=== PATIENT | female | born 1985 | race Caucasian/White ===

== ENCOUNTER → 2024-06-22 | Outpatient (CLI) | payer BC ==
--- NOTE | 2024-06-22 10:45 | CT ---
EXAMINATION TYPE: CT angio head neck DATE OF EXAM: 06/22/2024 8:13 AM COMPARISON: 02/17/2016. CLINICAL INDICATION: Female, 38 years old with history of H93.A9, G43.909; PHH, MONTES, pulsating Rt ear TECHNIQUE: CT noncontrast head and neck followed by CT angiogram head and neck. Axially acquired helical CT angiogram of the head and neck was obtained with contrast. Axial images are supplemented with 3D reconstructions and MIP images which were post-processed at an independent workstation. NASCET criteria used. Contrast used:65 mL of Isovue 370 without and with IV Contrast, Oral contrast used: None. CT DLP: 1399.3 mGycm, Automated exposure control for dose reduction was used. FINDINGS: CTA HEAD: No evidence of acute intracranial hemorrhage, mass effect, or midline shift. The ventricles, sulci, a nd cisterns are unremarkable. Vertebral arteries: The vertebral arteries are patent. Vertebral artery dominance: Codominant Basilar artery: The basilar artery is intact. The basilar artery bifurcation is normal. Internal Carotid arteries: The cervical, petrous, cavernous and supraclinoid segments are normal. GLADYS: Patent with no evidence of aneurysm. ACOM: Present without evidence of aneurysm. MCA: Patent with no evidence of aneurysm. MATHEMATICS PROFESSOR: Patent with no evidence of aneurysm. PCOM: Hypoplastic bilaterally. Dural sinuses: Patent. CTA NECK: Right Carotid System: The common carotid artery and external carotid artery are patent. The carotid bifurcation demonstrate s no evidence of hemodynamically significant stenosis. The remaining portions of the internal carotid artery demonstrate normal size without significant narrowing. Left Carotid System: The common carotid artery and external carotid artery are patent. The carotid bifurcation demonstrate s no evidence of hemodynamically significant stenosis. The remaining portions of the internal carotid artery demonstrate normal size without significant narrowing. Vertebral arteries are patent without evidence hemodynamically significant stenosis. There is a three-vessel aortic arch. The origins of the great vessels are patent. No evidence of hemo dynamically significant stenosis. Upper thorax: Pectus Excavatum morphology to the upper chest. IMPRESSION: 1. Normal course of the right internal carotid artery. 2. No evidence of dissection of the cervical internal carotid arteries or vertebral arteries. 3. No any evidence of significant stenosis at the carotid bifurcations. 4. No evidence of intracranial high-grade stenosis or intracranial aneurysm. [facility], , 06/22/2024 10:42 AM
== END | disposition home or self-care (01) ==
LOC: RADCTMAIN 07:29
PROVIDERS: ATTEND Family Medicine
DX: H93.A9 Pulsatile tinnitus, unspecified ear (principal); G43.909 Migraine, unspecified, not intractable, without status migrainosus
CPT/HCPCS: 70496; 70498; Q9967

== ENCOUNTER → 2024-10-10 | Outpatient (CLI) | payer OTHER ==
--- NOTE | 2024-10-10 15:15 | CT ---
EXAMINATION TYPE: CT abdomen pelvis w con DATE OF EXAM: 10/10/2024 COMPARISON: None CLINICAL INDICATION: Female, 39 years old with history of M61.9 CALCIFICATION AND OSSIFICATION OF MUS KRISTY; PHH, CALCIFICATION AND OSSIFICATION OF MUSCLE, SPINAL PAIN TECHNIQUE: Performed with Oral Contrast and with IV Contrast, patient injected with 100 ML mL of Isovue 300. CT DLP: [address] CTDI: mGy Automated exposure control for dose reduction was used. Findings: The lung bases are clear. There are multiple gallstones but no gallbladder distention, pericholecystic fluid or biliary ductal dilatation.. There is no focal mass or organomegaly involving the liver, pancreas, spleen or adrenal glands. There is no solid renal mass or hydronephrosis and there is homogeneous contrast enhancement of the r enal parenchyma. The caliber the abdominal aorta is normal is no retroperitoneal adenopathy or hemorr thom. The bowel loops are normal in caliber and there is no evidence of dilatation or obstruction. No infla mmatory changes are identified in the bowel wall or mesentery. There is no free intraperitoneal air or fluid. No pelvic mass, free fluid, abscess or adenopathy. The osseous structures and soft tissues are intact. IMPRESSION: No significant abnormality seen. [facility], , 10/10/2024 3:12 PM
== END | disposition home or self-care (01) ==
LOC: RADCTMAIN 11:25
PROVIDERS: ATTEND Family Medicine
DX: M61.9 Calcification and ossification of muscle, unspecified (principal)
CPT/HCPCS: 74177; Q9967